=== PATIENT | female | born 1960 | race Caucasian/White ===

== ENCOUNTER 2021-01-13 13:21 | Emergency (ER) | payer MEDICAID, OTHER ==
[~2021-01-13] VITALS: Ht 152.4 cm; Wt 70.3 kg
[~2021-01-13 13:21] MED LIST: VITAMINS
[2021-01-13 13:22] VITALS: BP 156/79
[2021-01-13] MEDS ORDERED: ACETAMINOPHEN 325 MG TAB PO ONE (14:30)
[2021-01-13] MEDS ORDERED: ALUMINUM HYD/MAG/SIMETHICONE 30 ML UDC PO ONE (14:30)
[2021-01-13] MEDS ORDERED: FAMOTIDINE 20 MG TAB PO ONE (14:30)
[2021-01-13] MEDS ORDERED: FAMO-90 PO (15:31)
[2021-01-13] MEDS ORDERED: ALUM355S59 PO (15:31)
[2021-01-13 15:51] VITALS: BP 156/79
== END 2021-01-13 15:52 | disposition home or self-care (01) ==
LOC: MED 13:21
DX: K21.9 Gastro-esophageal reflux disease without esophagitis (principal); Z79.899 Other long term (current) drug therapy
CPT/HCPCS: 81002; 99283

== ENCOUNTER 2022-01-20 12:41 | Emergency (ER) | payer MEDICAID ==
[~2022-01-20] VITALS: Ht 152.4 cm; Wt 68.7 kg
[~2022-01-20 12:41] MED LIST changes: +ALUM355S59 PO; +FAMO-90 PO
[2022-01-20 13:25] VITALS: BP 96/50
--- NOTE | 2022-01-20 13:38 | NUR ---
PT AMB TO BED 11.
--- NOTE | 2022-01-20 13:40 | NUR ---
61/F WALKED IN C/O RIB PAIN ACCOMPANIED BY LOWER FACIAL PAIN S/O DIZZINESS AND FALL TODAY. PT ALSO REPORTS SORE THROAT AND COUGH ONSET TODAY. PT REPORTS 5 MIN LOC. [id number], ON CARIDAC MONITOR. PMH: DENIES
[2022-01-20] MEDS ORDERED: NACL 0.9% 1,000 ML IV ONE (14:55)
[2022-01-20 15:34] LABS: BASOPHILS % (AUTO) 0.3 % (0.0-2.0); HEMOGLOBIN 13.7 g/dL (12.0-16.0); LYMPHOCYTES # (AUTO) 0.5 K/uL (2.5-16.5); LYMPHOCYTES % (AUTO) 4.9 % (20.5-51.1); MEAN CORPUSCULAR HEMOGLOBIN 29 pg (27-31); MEAN CORPUSCULAR HGB CONC 33 g/dL (33-37); MONOCYTES # (AUTO) 0.9 K/uL (0.8-1.0); MONOCYTES % (AUTO) 7.9 % (1.7-9.3); NEUTROPHILS # (AUTO) 9.7 K/uL (1.8-7.7); NEUTROPHILS % (AUTO) 86.9 % (42.2-75.2); PLATELET COUNT (AUTO) 207 K/uL (140-450); RED BLOOD CELL COUNT(AUTO) 4.77 MIL/uL (4.20-5.40); RED CELL DISTRIBUTION WIDTH 13.9 % (11.6-13.7); WHITE BLOOD COUNT (AUTO) 11.1 K/uL (4.8-10.8)
[2022-01-20] MEDS ORDERED: NIRM1TAB5 PO (15:37)
[2022-01-20] MEDS ORDERED: BENZ200C4 PO (15:41)
[2022-01-20] MEDS ORDERED: ACET-10509 PO (15:41)
[2022-01-20 15:53] LABS: ALBUMIN 3.2 g/dL (3.4-5.0); ASPARTATE AMINOTRANSFERASE 73 U/L (15-37); CARBON DIOXIDE 28.1 mmol/L (21-32); CHLORIDE 106 mmol/L (98-107); GFR ARICAN-AMERICAN 73 mL/min (>90); GLUCOSE 139 mg/dL (74-106); POTASSIUM 4.1 mmol/L (3.5-5.1); SODIUM SERUM 142 mmol/L (136-145); TOTAL BILIRUBIN 0.5 mg/dL (0.0-1.0); UREA NITROGEN, BLOOD 20 mg/dL (7-18)
[2022-01-20 16:40] VITALS: BP 101/56
== END 2022-01-20 16:40 | disposition home or self-care (01) ==
LOC: MED 12:41
DX: U07.1 COVID-19 (principal); Z79.899 Other long term (current) drug therapy
CPT/HCPCS: 36415; 71111; 80053; 84484; 85025; 87426; 87804; 93005; 96360; 99285; J7030; Q0092